=== PATIENT | female | born 1985 | race Hispanic/Latino ===

== ENCOUNTER 2018-11-06 12:30 | Emergency (ER) | payer BC ==
[2018-11-06] MEDS ORDERED: MORPHINE 4 MG/ML SYR ONE (14:07)
[2018-11-06] MEDS ORDERED: ONDANSETRON 4 MG/2 ML VIAL ONE (14:07)
[2018-11-06] MEDS ORDERED: NA CHLORIDE 0.9% 1,000 ML ONE (14:07)
[2018-11-06 14:09] LABS: Urine Blood NEGATIVE (NEG); Urine Glucose NEGATIVE (NEG); Urine Protein NEGATIVE (NEG); Urine pH 6.5 (5.0-7.0)
[2018-11-06 14:14] LABS: Absolute Lymphocytes (CBC) 2.2 K/uL (0.7-4.9); Basophils % 0.3 % (0-1.3); Hematocrit 40.9 % (36.0-45.0); Lymphocytes % 30.8 % (15.3-44.8); MPV 9.1 fL (7.6-11.3); Monocytes % 4.8 % (3.3-12.3); RBC Red Blood Cell Count 4.78 M/uL (3.86-4.86)
--- NOTE | 2018-11-06 14:20 | RAD REPORT ---
EXAM DESCRIPTION: US - Abdomen Exam Limited - 11/06/2018 2:12 pm CLINICAL HISTORY: ABD PAIN COMPARISON: No comparisons FINDINGS: The gallbladder demonstrates no gallstones. No pericholecystic fluid or gallbladder wall t hickening. The common bile duct is normal measuring 3 mm. The liver demonstrates no findings of intrahepatic biliary dilatation. IMPRESSION: Unremarkable examination.
[2018-11-06 14:30] LABS: Albumin 3.7 g/dL (3.4-5.0); Bilirubin Direct 0.1 mg/dL (0-0.2); Bilirubin Total 0.3 mg/dL (0.2-1.0); Potassium 3.7 mmol/L (3.5-5.1); Protein, Total 7.2 g/dL (6.4-8.2)
[2018-11-06] MEDS ORDERED: CEFTRIAXONE/SWI 1gm 1 GM/10 ML SYR ONE (14:38)
--- NOTE | 2018-11-06 14:40 | RAD REPORT ---
EXAM DESCRIPTION: RAD - Chest Single View - 11/06/2018 2:31 pm CLINICAL HISTORY: ABDOMINAL DISTENTION Chest pain. COMPARISON: No comparisons FINDINGS: Portable technique limits examination quality. The lungs are grossly clear. The heart is normal in size. No displaced fractures. IMPRESSION: No acute intrathoracic process suspected.
--- NOTE | 2018-11-06 15:00 | RAD REPORT ---
EXAM DESCRIPTION: CT - Angio Aorta For Dissection - 11/06/2018 2:44 pm CLINICAL HISTORY: Chest pain radiating to the back. PE;Dissection COMPARISON: No comparisons TECHNIQUE: CT angiography of the aorta was performed with MIPs. All CT scans are performed using dose optimization technique as appropriate and may include automated exposure control or mA/KV adjustment according to patient size. FINDINGS: A left aortic arch is present with normal branching pattern of the great vessels.No acute aortic finding is seen such as aneurysm, penetrating ulcer or dissection. The celiac axis, SMA, JO and renal arteries are widely patent. No evidence of pulmonary embolism. The lungs are clear. The liver demonstrates no focal mass or biliary dilatation.The spleen, pancreas, adrenal glands and k idneys are within normal limits for arterial phase imaging. No bowel obstruction, free fluid or abscess.No pathologic enlarged lymphadenopathy identified. No fracture or worrisome bone lesion seen. IMPRESSION: No acute aortic finding is demonstrated.
--- NOTE | 2018-11-06 15:20 | ER ---
Nurse's Notes [facility] Name: Britney Luque Age: 33 yrs Sex: Female : 1985 Arrival Date: 11/06/2018 Time: 12:35 Bed 27 Private MD: Diagnosis: Abdominal tenderness;Functional dyspepsia;Urinary tract infection, site not specified Presentation: 11/06 12:39 Presenting complaint: Patient states: RUQ pain radiating to right shoulder and right aa5 side of chest that began 2 weeks ago. Pt reports pain is sharp and intermittent. Pt reports nausea, denies vomiting. Transition of care: patient was not received from another setting of care. Onset of symptoms was October 2018. Risk Assessment: Do you want to hurt yourself or someone else? Patient reports no desire to harm self or others. Initial Sepsis Screen: Does the patient meet any 2 criteria? No. Patient's initial sepsis screen is negative. Does the patient have a suspected source of infection? No. Patient's initial sepsis screen is negative. Care prior to arrival: None. 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 - Social history:: Smoking status: Patient/guardian denies using tobacco. - Ebola Screening: : No symptoms or risks identified at this time. Screenin:05 Abuse screen: Denies threats or abuse. Denies injuries from another. Nutritional ca1 screening: No deficits noted. Tuberculosis screening: No symptoms or risk factors identified. Fall Risk None identified. Assessment: 13:05 General: Appears in no apparent distress. comfortable, Behavior is calm, cooperative, ca1 appropriate for age. Pain: Complains of pain in anterior aspect of right lateral abdomen Pain radiates to posterior aspect of right lateral abdomen Pain currently is 6 out of 10 on a pain scale. at worst was 10 out of 10 on a pain scale. Quality of pain is described as dull, pressure, Pain began 2-3 days ago. Is episodic. Neuro: Level of Consciousness is awake, alert, obeys commands, Oriented to person, place, time, situation. Cardiovascular: Heart tones S1 S2 present Capillary refill < 3 seconds Patient's skin is warm and dry. Pulses are all present. Rhythm is sinus rhythm. Respiratory: Airway is patent Respiratory effort is even, unlabored, Respiratory pattern is regular, symmetrical, Breath sounds are clear bilaterally. GI: Abdomen is flat, non-distended, Bowel sounds present X 4 quads. Abd is soft X 4 quads Abdomen is tender to palpation in right upper quadrant Reports diarrhea, nausea, vomiting, since on Tuesday. : Urine is cloudy. EENT: No deficits noted. No signs and/or symptoms were reported regarding the EENT system. Derm: Skin is intact, is healthy with good turgor, Skin is pink, warm \T\ dry. Musculoskeletal: Circulation, motion, and sensation intact. Capillary refill < 3 seconds, Range of motion: intact in all extremities. 14:01 Reassessment: Patient appears in no apparent distress at this time. No changes from ca1 previously documented assessment. Patient and/or family updated on plan of care and expected duration. Pain level reassessed. Patient is alert, oriented x 3, equal unlabored respirations, skin warm/dry/pink. 15:00 Reassessment: Patient appears in no apparent distress at this time. Patient and/or ca1 family updated on plan of care and expected duration. Pain level reassessed. Patient is alert, oriented x 3, equal unlabored respirations, skin warm/dry/pink. 15:45 Reassessment: Patient appears in no apparent distress at this time. Patient and/or ca1 family updated on plan of care and expected duration. Pain level reassessed. Patient is alert, oriented x 3, equal unlabored respirations, skin warm/dry/pink. Patient states feeling better. Vital Signs: 12:40 BP 138 / 65; Pulse 88; Resp 18 S; Temp 99.6(O); Pulse Ox 100% on R/A; Weight 72.57 kg aa5 (R); Height 5 ft. 6 in. (167.64 cm) (R); Pain 6/10; 14:01 BP 122 / 69; Pulse 80; Resp 17 S; Pulse Ox 100% on R/A; ca1 14:47 BP 129 / 81; Pulse 77; Resp 17 S; Temp 98.9(O); Pulse Ox 100% on R/A; ca1 15:30 BP 114 / 70; Pulse 70; Resp 16 S; Temp 99(O); Pulse Ox 100% on R/A; ca1 12:40 Body Mass Index 25.82 (72.57 kg, 167.64 cm) aa5 ED Course: 12:35 Patient arrived in ED. rg4 12:40 Triage completed. aa5 12:40 Arm band placed on. aa5 12:48 Evan Rubio MD is Attending Physician. odette 12:58 Carmen Maya, ANIL is Primary Nurse. ca1 13:05 Patient has correct armband on for positive identification. Placed in gown. Bed in low ca1 position. Call light in reach. Side rails up X 1. residential monitor on. Pulse ox on. NIBP on. Warm blanket given. 13:05 No provider procedures requiring assistance completed. Patient maintains SpO2 ca1 saturation greater than 95% on room air. 13:06 EKG done, by meter/relay technician. reviewed by Evan Rubio MD. at1 13:54 Inserted saline lock: 22 gauge in right antecubital area, using aseptic technique. jp3 Blood collected. 13:54 Initial lab(s) drawn, by me, sent to lab. jp3 13:57 Verbal reassurance given. jp3 13:58 Basic Metabolic Panel Sent. jp3 13:58 CBC with Diff Sent. jp3 13:58 Creatinine for Radiology Sent. jp3 13:58 Hepatic Function Sent. jp3 13:58 Lipase Sent. jp3 14:13 US Abdomen Limited In Process Unspecified. EDMS 14:27 Radiology exam delayed due to lab results not completed at this time. (BUN/Creatinine). vm2 14:33 Chest Single View XRAY In Process Unspecified. EDMS 14:[address] via wheelchair. ca1 14:45 CT Aorta for Dissection In Process Unspecified. EDMS 15:51 IV discontinued, intact, bleeding controlled, No redness/swelling at site. Pressure aj dressing applied. Administered Medications: 13:50 Drug: NS 0.9% 1000 ml Route: IV; Rate: 1 bolus; Site: right antecubital; ca1 15:00 Follow up: Response: No adverse reaction; IV Status: Completed infusion ca1 13:52 Drug: Zofran 4 mg Route: IVP; Site: right antecubital; ca1 14:18 Follow up: Response: No adverse reaction; Nausea is decreased ca1 13:55 Drug: morphine 2 mg Route: IVP; Site: right antecubital; ca1 14:19 Follow up: Response: No adverse reaction; Pain is decreased ca1 14:23 Drug: Rocephin - (cefTRIAXone) 1 grams Route: IVPB; Infused Over: 30 mins; Site: right ca1 antecubital; 14:55 Follow up: Response: No adverse reaction; IV Status: Completed infusion ca1 14:55 Drug: morphine 2 mg Route: IVP; Site: right antecubital; ca1 15:30 Follow up: Response: No adverse reaction; Pain is decreased ca1 Outcome: 15:20 Discharge ordered by . odette 15:52 Discharged to home ambulatory. andrez 15:52 Condition: good 15:52 Discharge instructions given to patient, Instructed on discharge instructions, follow up and referral plans. medication usage, Demonstrated understanding of instructions, follow-up care, medications, Prescriptions given X 4. 15:52 Patient left the ED. aj Signatures: Dispatcher [employer] EDMS Susan Velasco RN RN Evan Barrientos MD MD cha Calderon, Audri, RN RN aa5 Susan Holliday, hat parts cutter machine EKG Tat1 Kiki Rhodes rg4 Sherly Jasso 2 S[address] Starr jp3 Carmen Maya RN RN ca1 Corrections: (The following items were deleted from the chart) 15:55 15:52 Reassessment: Patient appears in no apparent distress at this time. Patient ca1 and/or family updated on plan of care and expected duration. Pain level reassessed. Patient is alert, oriented x 3, equal unlabored respirations, skin warm/dry/pink. ca1
--- NOTE | 2018-11-06 15:21 | EDPHYS ---
Physician Documentation [facility] Name: Britney Luque Age: 33 yrs Sex: Female : 1985 Arrival Date: 11/06/2018 Time: 12:35 Bed 27 Private MD: ED Physician Evan Rubio HPI: 11/06 13:40 This 33 yrs old Female presents to ER via Ambulatory with complaints of [facility] Shoulder Pain, Chest Pain, Flank Pain. 13:40 The patient or guardian complains of pain. 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 - Social history:: Smoking status: Patient/guardian denies using tobacco. - Ebola Screening: : No symptoms or risks identified at this time. ROS: 13:40 Constitutional: Negative for fever, chills, and weight loss, Eyes: Negative for injury, odette pain, redness, and discharge, ENT: Negative for injury, pain, and discharge, Neck: Negative for injury, pain, and swelling, Cardiovascular: Negative for chest pain, palpitations, and edema, Respiratory: Negative for shortness of breath, cough, wheezing, and pleuritic chest pain, Back: Negative for injury and pain, : Negative for injury, bleeding, discharge, and swelling, MS/Extremity: Negative for injury and deformity, Skin: Negative for injury, rash, and discoloration, Neuro: Negative for headache, weakness, numbness, tingling, and seizure, Psych: Negative for depression, anxiety, suicide ideation, homicidal ideation, and hallucinations, Allergy/Immunology: Negative for hives, rash, and allergies, Endocrine: Negative for neck swelling, polydipsia, polyuria, polyphagia, and marked weight changes, Hematologic/Lymphatic: Negative for swollen nodes, abnormal bleeding, and unusual bruising. 13:40 Abdomen/GI: Positive for abdominal pain, of the right upper quadrant. Exam: 13:40 Constitutional: This is a well developed, well nourished patient who is awake, alert, odette and in no acute distress. Head/Face: Normocephalic, atraumatic. Eyes: Pupils equal round and reactive to light, extra-ocular motions intact. Lids and lashes normal. Conjunctiva and sclera are non-icteric and not injected. Cornea within normal limits. Periorbital areas with no swelling, redness, or edema. ENT: Nares patent. No nasal discharge, no septal abnormalities noted. Tympanic membranes are normal and external auditory canals are clear. Oropharynx with no redness, swelling, or masses, exudates, or evidence of obstruction, uvula midline. Mucous membranes moist. Neck: Trachea midline, no thyromegaly or masses palpated, and no cervical lymphadenopathy. Supple, full range of motion without nuchal rigidity, or vertebral point tenderness. No Meningismus. Chest/axilla: Normal chest wall appearance and motion. Nontender with no deformity. No lesions are appreciated. Cardiovascular: Regular rate and rhythm with a normal S1 and S2. No gallops, murmurs, or rubs. Normal PMI, no JVD. No pulse deficits. Respiratory: Lungs have equal breath sounds bilaterally, clear to auscultation and percussion. No rales, rhonchi or wheezes noted. No increased work of breathing, no retractions or nasal flaring. Back: No spinal tenderness. No costovertebral tenderness. Full range of motion. Female : Normal external genitalia. Skin: Warm, dry with normal turgor. Normal color with no rashes, no lesions, and no evidence of cellulitis. MS/ Extremity: Pulses equal, no cyanosis. Neurovascular intact. Full, normal range of motion. Neuro: Awake and alert, GCS 15, oriented to person, place, time, and situation. Cranial nerves II-XII grossly intact. Motor strength 5/5 in all extremities. Sensory grossly intact. Cerebellar exam normal. Normal gait. Psych: Awake, alert, with orientation to person, place and time. Behavior, mood, and affect are within normal limits. 13:40 Abdomen/GI: Inspection: abdomen appears normal, Bowel sounds: normal, Palpation: mild abdominal tenderness, moderate abdominal tenderness, in the right upper quadrant, Liver: no appreciated palpable abnormalities, Hernia: not appreciated. Vital Signs: 12:40 BP 138 / 65; Pulse 88; Resp 18 S; Temp 99.6(O); Pulse Ox 100% on R/A; Weight 72.57 kg aa5 (R); Height 5 ft. 6 in. (167.64 cm) (R); Pain 6/10; 14:01 BP 122 / 69; Pulse 80; Resp 17 S; Pulse Ox 100% on R/A; ca1 14:47 BP 129 / 81; Pulse 77; Resp 17 S; Temp 98.9(O); Pulse Ox 100% on R/A; ca1 15:30 BP 114 / 70; Pulse 70; Resp 16 S; Temp 99(O); Pulse Ox 100% on R/A; ca1 12:40 Body Mass Index 25.82 (72.57 kg, 167.64 cm) aa5 MDM: 12:48 Patient medically screened. [facility] 13:42 Data reviewed: vital signs, nurses notes, lab test result(s), radiologic studies, plain odette films. 11/06 13:40 Order name: Basic Metabolic Panel; Complete Time: 15:18 [facility] 11/06 13:40 Order name: CBC with Diff; Complete Time: 14:18 [facility] 11/06 13:40 Order name: Creatinine for Radiology; Complete Time: 15:18 [facility] 11/06 13:40 Order name: Hepatic Function; Complete Time: 15:18 [facility] 11/06 13:40 Order name: Lipase; Complete Time: 15:18 [facility] 11/06 14:02 Order name: Urine Dipstick--Ancillary (enter results); Complete Time: 14:18 11/06 13:40 Order name: Chest Single View XRAY; Complete Time: 15:18 [facility] 11/06 13:40 Order name: US Abdomen Limited; Complete Time: 15:18 [facility] 11/06 14:02 Order name: Urine --Ancillary (enter results); Complete Time: 14:18 11/06 14:19 Order name: Urine Culture [facility] 11/06 14:19 Order name: CT Aorta for Dissection; Complete Time: 15:18 [facility] 11/06 13:40 Order name: IV Saline Lock; Complete Time: 13:49 [facility] 11/06 13:40 Order name: Labs collected and sent; Complete Time: 13:49 [facility] 11/06 13:40 Order name: Urine Dipstick-Ancillary (obtain specimen); Complete Time: 13:48 [facility] 07/15 13:40 Order name: Urine Test (obtain specimen); Complete Time: 13:48 [facility] Administered Medications: 13:50 Drug: NS 0.9% 1000 ml Route: IV; Rate: 1 bolus; Site: right antecubital; ca1 15:00 Follow up: Response: No adverse reaction; IV Status: Completed infusion ca1 13:52 Drug: Zofran 4 mg Route: IVP; Site: right antecubital; ca1 14:18 Follow up: Response: No adverse reaction; Nausea is decreased ca1 13:55 Drug: morphine 2 mg Route: IVP; Site: right antecubital; ca1 14:19 Follow up: Response: No adverse reaction; Pain is decreased ca1 14:23 Drug: Rocephin - (cefTRIAXone) 1 grams Route: IVPB; Infused Over: 30 mins; Site: right ca1 antecubital; 14:55 Follow up: Response: No adverse reaction; IV Status: Completed infusion ca1 14:55 Drug: morphine 2 mg Route: IVP; Site: right antecubital; ca1 15:30 Follow up: Response: No adverse reaction; Pain is decreased ca1 Disposition: 11/06/18 15:20 Discharged to Home. Impression: Abdominal tenderness, Functional dyspepsia, Urinary tract infection, site not specified. - Condition is Stable. - Discharge Instructions: Abdominal Pain, Adult, Dysuria, Urinary Tract Infection, Adult, Urinary Tract Infection, Adult, [id number], Abdominal Pain, Adult, [id number]. - Prescriptions for Cipro 250 mg Oral Tablet - take 1 tablet by ORAL route every 12 hours; 14 tablet. Pepcid 20 mg Oral Tablet - take 1 tablet by ORAL route every 12 hours for 10 days; 20 tablet. Tylenol- Codeine #3 300-30 mg Oral Tablet - take 2 tablets by ORAL route every 6 hours As needed; 20 tablet. Zofran 4 mg Oral Tablet - take 1 tablet by ORAL route every 12 hours As needed; 20 tablet. - Medication Reconciliation Form, Thank You Letter, Antibiotic Education, Prescription Opioid Use form. - Follow up: Private Physician; When: 2 - 3 days; Reason: Recheck today's complaints, Continuance of care, Re-evaluation by your physician. - Problem is new. - Symptoms have improved. Signatures: Dispatcher [employer] Susan Navarro RN RN aj Anderson, Corey, MD MD cha Calderon, Audri, RN RN aa5 Carmen Maya RN RN ca1 Corrections: (The following items were deleted from the chart) 15:22 15:20 11/06/2018 15:20 Discharged to Home. Impression: Abdominal tenderness; Functional odette dyspepsia. Condition is Stable. Forms are Medication Reconciliation Form, Thank You Letter, Antibiotic Education, Prescription Opioid Use. Follow up: Private Physician; When: 2 - 3 days; Reason: Recheck today's complaints, Continuance of care, Re-evaluation by your physician. Problem is new. Symptoms have improved. [facility] 15:52 15:22 11/06/2018 15:20 Discharged to Home. Impression: Abdominal tenderness; Functional aj dyspepsia; Urinary tract infection, site not specified. Condition is Stable. Discharge Instructions: Abdominal Pain, Adult, Abdominal Pain, Adult, [id number]. Prescriptions for Cipro 250 mg Oral Tablet - take 1 tablet by ORAL route every 12 hours; 14 tablet, Pepcid 20 mg Oral Tablet - take 1 tablet by ORAL route every 12 hours for 10 days; 20 tablet, Tylenol-Codeine #3 300-30 mg Oral Tablet - take 2 tablets by ORAL route every 6 hours As needed; 20 tablet, Zofran 4 mg Oral Tablet - take 1 tablet by ORAL route every 12 hours As needed; 20 tablet. and Forms are Medication Reconciliation Form, Thank You Letter, Antibiotic Education, Prescription Opioid Use. Follow up: Private Physician; When: 2 - 3 days; Reason: Recheck today's complaints, Continuance of care, Re-evaluation by your physician. Problem is new. Symptoms have improved. [facility]
--- NOTE | 2018-11-06 20:05 | EKG ---
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
== END 2018-11-06 15:52 | disposition home or self-care (01) ==
LOC: ER 12:30
DX: N39.0 Urinary tract infection, site not specified (principal); K30 Functional dyspepsia; Z88.2 Allergy status to sulfonamides; Z91.040 Latex allergy status; Z91.048 Other nonmedicinal substance allergy status
CPT/HCPCS: 36415; 71045; 71275; 74175; 76705; 80048; 80076; 81003; 81025; 83690; 85025; 87086; 87088; 93005; 96361; 96365; 96375; 99285; J0696; J2405; J7030; Q9967